=== PATIENT | female | born 1995 | race Caucasian/White ===

== ENCOUNTER 2016-09-28 13:03 | Outpatient (CLI) | payer BC ==
[~2016-09-28 13:03] MED LIST: PRENATAL TABLE1 EAC3 PO
[2016-09-28 13:25] VITALS: BP 136/91
[2016-09-28 13:55] VITALS: BP 137/92
[2016-09-28 13:59] LABS: HEMATOCRIT 28.7 % (36.0-46.0); MCH 21.7 PG (29.0-34.0); MEAN PLAT.VOLUME 10.3 uM^3 (9.5-12.4); NRBC (%) 0.2 /100 WBC (0-0); PLATELET COUNT 219 K/uL (156-360); RBC DIS.WIDTH-SD 38.2 % (39-53); WHITE BLOOD COUNT 10.6 K/uL (4.1-10.2)
[2016-09-28 14:02] LABS: EOSINOPHIL (%) 2.4 % (0-5); EOSINOPHIL COUNT 0.3 K/uL (0-0.3); IMMATURE GRANULOCYTE (%) 0.8 % (0.0-0.7); IMMATURE GRANULOCYTE COUNT 0.1 K/uL; MONOCYTE (%) 5.9 % (3-12); MONOCYTE COUNT 0.6 K/uL (0-0.8); NEUTROPHIL (%) 71.5 % (45-76); NEUTROPHIL COUNT 7.6 K/uL (1.8-6.4)
[2016-09-28 14:14] LABS: ANION GAP 10 MEQ/L (2-14); CHLORIDE 102 MEQ/L (99-109); POTASSIUM 4.2 MEQ/L (3.7-5.4); SAMPLE HEMOLYSIS CHECK 0; SAMPLE ICTERIC CHECK 0; SAMPLE LIPEMIA CHECK 0; SODIUM 136 MEQ/L (136-147); TOTAL BILIRUBIN 0.3 MG/DL (0.0-1.0)
[2016-09-28 14:21] LABS: ALKALINE PHOSPHATASE 131 IU/L (3-129); GFR ESTIMATE (CALCULATED) > 59 mL/min/; GLUCOSE 75 mg/dL (70-99); UREA NITROGEN (BUN) 7 mg/dL (9-23)
[2016-09-28 14:32] VITALS: BP 127/83
[2016-09-28 14:33] LABS: HEMATOLOGY COMMENT 1 SMEAR COMPATIBLE; USER ID SDF
[2016-09-28 14:34] LABS: UR CREATININE CONCENTRATION 16.6 MG/DL
== END 2016-09-28 15:32 | disposition home or self-care (01) ==
LOC: LDRP-OP 13:03 → 2WEST 13:04 → LDRP-OP 11-24 18:13
PROVIDERS: Midwife
DX: O16.3 Unspecified maternal hypertension, third trimester (principal); O99.89 Other specified diseases and conditions complicating pregnancy, childbirth and the puerperium; Z3A.36 36 weeks gestation of pregnancy; R79.9 Abnormal finding of blood chemistry, unspecified
CPT/HCPCS: 59025; 80053; 82570; 84156; 85025; G0378

== ENCOUNTER 2016-10-22 09:58 | Inpatient (IN) | payer BC ==
[2016-10-22] VITALS (18 sets, daily range): BP systolic 139–179; BP diastolic 91–111
[~2016-10-22] VITALS: Ht 157.5 cm; Wt 59.0 kg
[2016-10-22 11:17] LABS: HEMATOCRIT 30.9 % (36.0-46.0); MCH 21.1 PG (29.0-34.0); MCHC 31.7 G/DL (30.0-36.0); MCV 66.5 FL (83-99); RBC DIS.WIDTH-SD 39.9 % (39-53); RED BLOOD COUNT 4.65 M/uL (3.80-5.20)
[2016-10-22 11:21] LABS: EOSINOPHIL (%) 1.5 % (0-5); EOSINOPHIL COUNT 0.2 K/uL (0-0.3); IMMATURE GRANULOCYTE (%) 0.5 % (0.0-0.7); IMMATURE GRANULOCYTE COUNT 0.6 K/uL; LYMPHOCYTE COUNT 2.4 K/uL (1.0-2.8); MEAN PLAT.VOLUME 11.1 uM^3 (9.5-12.4); MONOCYTE (%) 5.9 % (3-12); MONOCYTE COUNT 0.7 K/uL (0-0.8); NEUTROPHIL (%) 71.8 % (45-76); NEUTROPHIL COUNT 8.6 K/uL (1.8-6.4)
[2016-10-22 11:22] LABS: PLATELET COUNT 292 K/uL (156-360)
[2016-10-22 11:26] LABS: CHLORIDE 110 mEq/L (99-109); POTASSIUM 4.3 mEq/L (3.7-5.4); SODIUM 140 mEq/L (136-147)
[2016-10-22 11:28] LABS: GLUCOSE 89 mg/dL (70-99)
[2016-10-22 11:29] LABS: ANION GAP 13 MEQ/L (2-14)
[2016-10-22 11:30] LABS: TOTAL BILIRUBIN 0.2 mg/dL (0.0-1.0)
[2016-10-22 11:32] LABS: ALKALINE PHOSPHATASE 179 IU/L (3-129); GFR ESTIMATE (CALCULATED) > 59 mL/min/
[2016-10-22 11:33] LABS: UREA NITROGEN (BUN) 7 mg/dL (9-23)
[2016-10-22 12:32] LABS: UR CREATININE CONCENTRATION 142.2 MG/DL
[2016-10-23] VITALS (10 sets, daily range): BP systolic 134–165; BP diastolic 80–98
[2016-10-23] MEDS ORDERED: IBUPROFEN800 MG PO (00:45)
[2016-10-24 04:35] VITALS: BP 143/97
[2016-10-24 08:44] VITALS: BP 133/94
[2016-10-24 12:00] VITALS: BP 139/103
[2016-10-24 16:17] VITALS: BP 133/86
[2016-10-24 19:06] VITALS: BP 139/94
[2016-10-24 22:32] VITALS: BP 149/88
[2016-10-25 04:50] VITALS: BP 146/98
[2016-10-25 08:11] VITALS: BP 156/94
[2016-10-25] MEDS ORDERED: PROCARDIA XL60 MG PO (09:27)
[2016-10-25 12:00] VITALS: BP 144/82
== END 2016-10-25 15:23 | disposition home or self-care (01) | DRG 775 ==
LOC: LDRP-OP 09:58 → 2WEST 09:59 → LDRP-OP 11-24 16:19
PROVIDERS: Nurse Practitioner
DX: O33.0 Maternal care for disproportion due to deformity of maternal pelvic bones (principal); O14.04 Mild to moderate pre-eclampsia, complicating childbirth; O99.344 Other mental disorders complicating childbirth; F41.9 Anxiety disorder, unspecified; O13.4 Gestational [pregnancy-induced] hypertension without significant proteinuria, complicating childbirth; O99.350 Diseases of the nervous system complicating pregnancy, unspecified trimester; G43.909 Migraine, unspecified, not intractable, without status migrainosus; Z3A.39 39 weeks gestation of pregnancy; O36.5990 Maternal care for other known or suspected poor fetal growth, unspecified trimester, not applicable or unspecified; Z37.0 Single live birth
CPT/HCPCS: 80053; 82570; 84156; 85025; C1755; G0378; J0360; J0595; J7120; Q0169